=== PATIENT | male | born 2000 | race Hispanic/Latino ===

== ENCOUNTER 2025-01-03 16:48 | Emergency (ER) | payer BC, SELFPAY ==
[2025-01-03] MEDS ORDERED: Ibuprofen 800 MG TAB ONE (18:27)
== END 2025-01-03 20:07 | disposition home or self-care (01) ==
LOC: ERS 16:48
DX: U07.1 COVID-19 (principal)
CPT/HCPCS: 71045; 87081; 87428; 87430